=== PATIENT | female | born 1950 | race Caucasian/White ===

== ENCOUNTER 2018-09-28 07:33 | Day surgery (SDC) | payer MEDICARE ==
[~2018-09-28] VITALS: Ht 167.6 cm; Wt 78.5 kg
[~2018-09-28 07:33] MED LIST: BACITRACIN PWD 50,000 UNITS VIAL As Ordered ONE; BUPIVACAINE HCL 0.25% 30 ML VIAL As Ordered ONE; BUPIVACAINE HCL 0.5% 30 ML VIAL As Ordered ONE; LIDOCAINE 1% MDV 20ML VIAL SQ PRN; LIDOCAINE 2% MDV 20 ML VIAL As Ordered ONE; LR 1,000 ML IV ONE; NEOSPORIN GU IRRIG 20 ML VIAL As Ordered ONE; ceFAZolin SOD 2 GM in IV 1 EA IV ONE; dexameTHASONE 4 MG/ML 1ML VIAL (J1100) As Ordered ONE
[2018-09-28] MEDS ORDERED: KETAMINE HCL 200 MG/20 ML VIAL As Ordered ONE ×2 (07:55→10:51)
[2018-09-28] MEDS ORDERED: ONDANSETRON 4MG/2ML VIAL (J2405) As Ordered ONE (07:55)
[2018-09-28] MEDS ORDERED: MIDAZOLAM INJ 2 MG/2 ML VIAL (J2250) As Ordered ONE (07:55)
[2018-09-28] MEDS ORDERED: LIDOCAINE 2% INJ 100 MG/5 ML SDV (FOR ANES.) As Ordered ONE (07:55)
[2018-09-28] MEDS ORDERED: fentaNYL 100 MCG/2 ML INJECTION (J3010) As Ordered ONE (07:55)
[2018-09-28] MEDS ORDERED: PROPOFOL 200 MG/20 ML VIAL As Ordered ONE (07:55)
[2018-09-28 08:30] LABS: BLOOD UREA NITROGEN 17 MG/DL (7-18); CARBON DIOXIDE LEVEL 28 MEQ/L (21-32); CHLORIDE LEVEL 108 MEQ/L (98-107); CREATININE FOR GFR 0.84 MG/DL (0.55-1.30); GLOMERULAR FILTRATION RATE > 60.0 (>45); GLUCOSE, FASTING 106 MG/DL (70-100); POTASSIUM SERUM 3.8 MEQ/L (3.5-5.1); SODIUM LEVEL 140 MEQ/L (136-145)
[2018-09-28] MEDS ORDERED: BACITRACIN PWD 50,000 UNITS VIAL As Ordered ONE (10:38)
[2018-09-28] MEDS ORDERED: GLYCOPYRROLATE INJ 0.2 MG/ML 2 ML VIAL As Ordered ONE (10:51)
[2018-09-28] MEDS ORDERED: dexameTHASONE 4 MG/ML 1ML VIAL (J1100) As Ordered ONE (11:59)
[2018-09-28 13:45] VITALS: BP 162/84
--- NOTE | 2018-09-28 14:01 | REP ---
Status post bunionectomy. Overlying casting/bandaging material obscures the bony detail. There has been previous cheilectomy. Internal fixation plate and screws seen fusing the 1st metatarsophalangeal joint. IMPRESSION: Postoperative changes. Electronically Signed by Juan Jose Abbasi DO 09/28/2018 02:15 P
--- NOTE | 2018-10-01 12:07 | RO ---
DATE OF PROCEDURE: 09/28/2018 PREPROCEDURE DIAGNOSIS: Hallux valgus deformity, right foot. POSTPROCEDURE DIAGNOSIS: Hallux valgus deformity, right foot. PROCEDURE: Fusion first metatarsophalangeal joint with plate and screw fixation, right foot. SURGEON: Dr. [place]. GARAGE DOOR SERVICE TECHNICIAN: None. ANESTHESIA: Local monitored anesthesia care (MAC). IRRIGATION: Dilute bacitracin, neomycin, polymyxin B solution. HEMOSTASIS: Ankle pneumatic tourniquet at 250 mmHg for 78 minutes. HARDWARE UTILIZED: Arthrex medium right-sided MTP plate with locking and nonlocking screws 3 mm x 16, 18, 20, 20, 22. There is a partially threaded 3.0 screw, 3.0 x 32 mm. DESCRIPTION OF PROCEDURE: On 09/28/2018, this 68-year-old white female was taken from her hospital room to the operating room and placed on the operating room table in a supine position. Following the induction of IV sedation and local and regional anesthesia, the right lower extremity was prepped and draped in the usual aseptic manner. Attention was directed to the patient's right foot and the following procedure was performed. FUSION 1ST METATARSOPHALANGEAL JOINT WITH PLATE AND SCREW FIXATION: An incision was placed measuring approximately 7 mm over the 1st metatarsophalangeal joint of the right foot medial to the extensor tendon. The incision was deepened through subcutaneous tissues and all coursing venous tributaries were identified, underscored, clamped, cut, ligated and electrocoagulated as necessary. A linear capsulotomy was performed in the same plane as the original skin incision and the capsule and periosteal structures were dissected free in one continuous layer dorsally, medially and laterally. This lead into view, large loose bodies on the dorsal aspect of the foot, which were debrided away with a rongeur. The joint was opened and approximately 50-55% of the articular cartilage was denuded from the 1st metatarsal 60% from the proximal phalanx, therefore, a fusion of the first metatarsophalangeal joint was elected to be performed. Utilizing a power saw, an osteotomy was performed from the medial eminence of the first metatarsal exiting medial to the sesamoidal grove. Utilizing a rongeur the spurring on the dorsal aspect of the 1st metatarsal was removed as well as the proximal phalanx. Utilizing reamers, the 1st metatarsophalangeal joint was reamed of its articular cartilage. This was completed utilizing a curet to get the remaining cartilage to the subchondral plate utilizing a large K-wire. The first metatarsal and proximal phalanx were drilled to help promote fusion. The wound was flushed with copious amounts of dilute bacitracin, neomycin, polymyxin B solution. The toe was then held with the nail plate parallel to the weightbearing surface and the toe approximately for 45 mm of dorsiflexion from the planar surface with the hallux being parallel to the second toe. A K-wire was driven across the proximal phalanx and metatarsal overlying a medial skin stab incision. The wire was measured and a 3.0 x 32 mm partially threaded screw was placed across the 1st metatarsophalangeal joint. C-arm imaging revealed good overall position. A standard right-sided MTP plate was then contoured to the 1st metatarsal. Appropriate screws were then placed in the holes. One locking screw was utilized. The rest were nonlocking screws 3.0 x 16, 18, 20, 20, and 22. After positioning of the plate and screws, the toe was again evaluated. The hallux maintained its good alignment throughout the position and no change from the previous screw fixation was noted. The fusion site was stable in all three cardinal planes. The wound was flushed with copious amounts of dilute bacitracin, neomycin and polymyxin B solution. Attention was directed towards closure where the capsular was coapted and maintained with #2-0 Monocryl in a simple interrupted type fashion. Subcutaneous tissues were coapted and maintained utilizing #4-0 Monocryl in a simple interrupted type fashion, skin incision coapted and maintained utilizing #5-0 Monocryl in a simple interrupted horizontal mattress type fashion. continuous subcuticular type fashion. Dry sterile dressing applied consisting of Adaptic, 4 x 4s, 4 x 4 splints, Solange and Kerlix. A boot fiberglass cast was then applied to the patient's right lower extremity with the foot at a right angle to the leg. The patient having apparently tolerated the surgical procedure well was taken from the operating room (OR) to the recovery room for further monitoring by the anesthesia department. Postop instruction were given upon discharge.
== END 2018-09-28 13:45 | disposition home or self-care (01) ==
LOC: M SDC 07:33
PROVIDERS: ATTEND Podiatrist
DX: M20.21 Hallux rigidus, right foot (principal); M79.671 Pain in right foot
CPT/HCPCS: 28750; 36415; 73630; 80048; 88300; 97116; C1713; J0690; J1100; J2250; J2405; J3010

== ENCOUNTER → 2020-02-12 | Outpatient (CLI) | payer MEDICARE ==
[2020-02-12 10:43] LABS: BASO # 0.1 10^3/uL (0.0-0.2); EOS # 0.1 10^3/uL (0.0-0.5); EOS % 1.2 % (0.0-3.0); HEMATOCRIT 43.7 % (36.0-47.0); HEMOGLOBIN 14.4 g/dl (12.0-15.5); LYMPH # 1.9 10^3/uL (1.5-5.0); LYMPH % 27.9 % (24.0-44.0); MEAN CORPUSCULAR VOLUME 94.2 fl (80.0-96.0); MONO # 0.5 10^3/uL (0.0-0.8); NEUTROPHILS # 4.2 10^3/uL (1.5-8.5); NEUTROPHILS % 62.6 % (36.0-66.0); PLATELET COUNT, AUTOMATED 259 10^3/uL (150-450); RED BLOOD COUNT 4.64 10^6/uL (4.00-5.40); WHITE BLOOD COUNT 6.7 10^3/uL (4.0-10.0)
[2020-02-12 11:14] LABS: BLOOD UREA NITROGEN 19 MG/DL (7-18); CALCIUM LEVEL 9.2 MG/DL (8.8-10.2); CARBON DIOXIDE LEVEL 27 MEQ/L (21-32); CHLORIDE LEVEL 108 MEQ/L (98-107); CREATININE FOR GFR 0.86 MG/DL (0.55-1.30); GLOMERULAR FILTRATION RATE > 60.0 (>45); GLUCOSE, FASTING 109 MG/DL (70-100); POTASSIUM SERUM 4.9 MEQ/L (3.5-5.1); SODIUM LEVEL 140 MEQ/L (136-145)
--- NOTE | 2020-02-13 22:41 | ECGEPIP ---
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 No significant change compared with 09/24/2018. Electronically Signed on 02-13-2020 22:40:50 EST by Edgar Hay
== END ==
LOC: M LAB 09:17
PROVIDERS: ATTEND Podiatrist
DX: M20.22 Hallux rigidus, left foot (principal); M25.572 Pain in left ankle and joints of left foot

== ENCOUNTER → 2020-02-16 | Outpatient (CLI) | payer MEDICARE | LOC: M LABSMTC 11:19 | PROVIDERS: ATTEND Anesthesiology | DX: Z01.818 Encounter for other preprocedural examination (principal); Z20.828 Contact with and (suspected) exposure to other viral communicable diseases ==

== ENCOUNTER 2020-02-21 07:45 | Day surgery (SDC) | payer MEDICARE ==
[~2020-02-21] VITALS: Ht 168.9 cm; Wt 80.3 kg
[~2020-02-21 07:45] MED LIST changes: -BACITRACIN PWD 50,000 UNITS VIAL As Ordered ONE; -BUPIVACAINE HCL 0.25% 30 ML VIAL As Ordered ONE; -BUPIVACAINE HCL 0.5% 30 ML VIAL As Ordered ONE; -LIDOCAINE 1% MDV 20ML VIAL SQ PRN; -LIDOCAINE 2% MDV 20 ML VIAL As Ordered ONE; -NEOSPORIN GU IRRIG 20 ML VIAL As Ordered ONE; -dexameTHASONE 4 MG/ML 1ML VIAL (J1100) As Ordered ONE
[2020-02-21] MEDS ORDERED: propofoL 500 MG/50 ML VIAL As Ordered ONE (08:10)
[2020-02-21] MEDS ORDERED: dexameTHASONE 4 MG/ML 1ML VIAL (J1100 PER 1MG) As Ordered ONE ×2 (08:10→08:58)
[2020-02-21] MEDS ORDERED: fentaNYL 100 MCG/2 ML INJECTION (J3010) As Ordered ONE (08:10)
[2020-02-21] MEDS ORDERED: MIDAZOLAM INJ 2MG/2ML VIAL (J2250 PER 1MG) As Ordered ONE (08:10)
[2020-02-21] MEDS ORDERED: ONDANSETRON 4MG/2ML VIAL As Ordered ONE (08:10)
[2020-02-21] MEDS ORDERED: LIDOCAINE 2% INJ 100 MG/5 ML SYRINGE As Ordered ONE (08:10)
[2020-02-21] MEDS ORDERED: LIDOCAINE 2% 100MG/5ML SDV (FOR ANES.) As Ordered ONE (08:13)
[2020-02-21] MEDS ORDERED: BUPIVACAINE HCL 0.5% 30 ML VIAL As Ordered ONE (08:50)
[2020-02-21] MEDS ORDERED: LIDOCAINE 2% MDV 20ML VIAL As Ordered ONE (08:50)
[2020-02-21] MEDS ORDERED: BACITRACIN PWD 50,000 UNITS VIAL As Ordered ONE (08:58)
[2020-02-21] MEDS ORDERED: SUGAMMADEX SODIUM 500 MG/5 ML VIAL (BRIDION) As Ordered ONE (09:52)
[2020-02-21 12:10] VITALS: BP 161/72
--- NOTE | 2020-02-21 12:27 | REP ---
INDICATION: POST OP CHEILECTOMY WITH FUSION LEFT FOOT COMPARISON: None. TECHNIQUE: Three views. FINDINGS: There is surgical fusion of the great toe MTP with a stabilization plate and cannulated screw. The hardware and skeletal structures are in satisfactory positions and alignment. There is a fiberglass cast. Calcaneal plantar spur is incidentally noted. IMPRESSION: Great toe MTP surgical fusion as described <Electronically signed by Bart Sands > 02/21/20 2005
--- NOTE | 2020-02-21 22:39 | RO ---
OPERATIVE NOTE DATE OF OPERATION: 02/21/2020 PREOPERATIVE DIAGNOSIS: Hallux limitus deformity, left foot. POSTOPERATIVE DIAGNOSIS: Hallux limitus deformity, left foot. SURGEON: ANGELITO Gomez ASSISTANT: None. ANESTHESIA: Local MAC. IRRIGATION: Dilute bacitracin, neomycin, polymyxin B solution. HEMOSTASIS: Ankle pneumatic tourniquet at 200 mmHg for 62 minutes, left ankle. HARDWARE UTILIZED: Arthrex MTP small plate, left-sided and locking and nonlocking screws, nonlocking screws 3.0 x 38, 3.0 x 18 and a 3.0 x 20 locking screws, 3.0 x 20, 3.0 x 20, 3.0 x 16 and a 3.0 x 16 screw. DESCRIPTION OF OPERATION: On 02/21/2020, this 70-year-old white female was taken from her hospital room to the operating room and placed on the operating table in supine position. Following the induction of IV sedation and local and regional anesthesia, the left lower extremity was prepped and draped in the usual aseptic manner. Attention was directed to the patient's left foot and a 7 cm incision was placed over the first metatarsophalangeal joint medial to the extensor tendon. The incision was deepened through the subcutaneous tissues and all crossing venous tributaries were identified, scored, clamped, cut and ligated with electrocoagulation as necessary A linear capsulotomy was then performed in the same plane as the original skin incision. The capsule and periosteal structures were then dissected free in one continuous layer, dorsally, medially and laterally, thus creating a capsular periosteal type envelope. This brought into view the cartilage of the first metatarsophalangeal joint. The central area approximately encompassing 40% of the joint was completely denuded. Therefore, any resection of the joint would remove 70-80% of the articular cartilage on the first metatarsophalangeal joint, making a cheilectomy not feasible. Therefore utilizing a cup and cone reamer, the remaining cartilage was reamed off the first metatarsal and proximal phalanx. Utilizing a Kennedy sagittal saw, spurring was then removed dorsally off the first metatarsal and proximal phalanx and the medial eminence of the first metatarsal. Utilizing a rongeur and curette, any remaining cartilage and spurring were removed. Utilizing a 2 mm drill bit, the first metatarsal and phalanx were fenestrated. The wound was flushed with copious amounts of dilute bacitracin, neomycin, polymyxin B solution. The toe was placed in position to allow adequate dorsiflexion of the hallux and this was temporarily fixated with a K-wire. Position was then verified and a 3.0 x 38 mm screw was placed across the first metatarsophalangeal joint. Adequate position was noted. The first metatarsophalangeal joint implant, left-sided Arthrex, size small was then contoured to the first metatarsophalangeal joint and fixated utilizing the appropriate locking and nonlocking screws. Locking screws were 3.0 x 20, 20, 16 and 16 and the nonlocking screws were size 18 and 20. Intraoperative C-arm imagery revealed excellent position of fixation and the hallux was approximately 5 mm dorsal off the weightbearing surface with adequate position of the hallux. The wound was flushed with copious amounts of dilute bacitracin, neomycin, polymyxin B solution and attention directed towards closure with the capsular structures coapted and maintained utilizing 3-0 Monocryl in a simple interrupted type fashion. The subcutaneous tissues were coapted and maintained utilizing 4-0 Monocryl in a simple interrupted type fashion. The skin incision was coapted and maintained utilizing 4-0 Prolene in a simple interrupted and horizontal mattress type fashion. Attention was directed toward bandaging where a bandage was applied consisting of Adaptic, 4x4s, 4x4 splints Kerlix and a well-molded Fiberglass cast was applied to the patient's foot and lower leg. The patient having apparently tolerated the surgical procedure well and was taken from the OR to the recovery room for further monitoring by the anesthesia department. Postoperative instructions were given upon discharge.
== END 2020-02-21 12:40 | disposition home or self-care (01) ==
LOC: M SDC 07:45
PROVIDERS: ATTEND Podiatrist
DX: M20.22 Hallux rigidus, left foot (principal); M79.672 Pain in left foot; K21.9 Gastro-esophageal reflux disease without esophagitis
CPT/HCPCS: 28750; 73630; 76000; 88300; C1713; J0690; J1100; J2250; J2405; J3010

== ENCOUNTER → 2021-09-09 | Outpatient (CLI) | payer MEDICARE ==
[2021-09-09 13:00] LABS: ALBUMIN 3.9 GM/DL (3.2-5.2); ALT/SGPT 26 U/L (12-78); BASO # 0.1 10^3/uL (0.0-0.2); BILIRUBIN,TOTAL 0.8 MG/DL (0.2-1.0); BLOOD UREA NITROGEN 19 MG/DL (7-18); CALCIUM LEVEL 9.1 MG/DL (8.8-10.2); CARBON DIOXIDE LEVEL 27 MEQ/L (21-32); CHLORIDE LEVEL 108 MEQ/L (98-107); CHOLESTEROL LEVEL 188 MG/DL (<200); CHOLESTEROL RISK RATIO 3.298 (<5); CREATININE FOR GFR 0.82 MG/DL (0.55-1.30); EOS # 0.1 10^3/uL (0.0-0.5); EOS % 1.8 % (0.0-3.0); GLOMERULAR FILTRATION RATE > 60.0 (>45); GLUCOSE, FASTING 109 MG/DL (70-100); HDL CHOLESTEROL 57 MG/DL (>40); HEMATOCRIT 43.1 % (36.0-47.0); HEMOGLOBIN 14.2 g/dl (12.0-15.5); LDL CHOLESTEROL 108 MG/DL (<100); LYMPH # 1.7 10^3/uL (1.5-5.0); LYMPH % 34.1 % (24.0-44.0); MEAN CORPUSCULAR HEMOGLOBIN 30.6 pg (27.0-33.0); MEAN CORPUSCULAR HGB CONC 32.9 g/dl (32.0-36.5); MEAN CORPUSCULAR VOLUME 92.9 fl (80.0-96.0); MONO # 0.4 10^3/uL (0.0-0.8); MONO % 8.1 % (2.0-8.0); NEUTROPHILS # 2.7 10^3/uL (1.5-8.5); NEUTROPHILS % 54.8 % (36.0-66.0); NON-HDL-C 131 MG/DL; PLATELET COUNT, AUTOMATED 259 10^3/uL (150-450); POTASSIUM SERUM 4.5 MEQ/L (3.5-5.1); RED BLOOD COUNT 4.64 10^6/uL (4.00-5.40); SODIUM LEVEL 140 MEQ/L (136-145); TOTAL PROTEIN 7.1 GM/DL (6.4-8.2); TRIGLYCERIDES LEVEL 113 MG/DL (<150); WHITE BLOOD COUNT 4.9 10^3/uL (4.0-10.0)
== END ==
LOC: M WUC 09:10
PROVIDERS: ATTEND Nurse Practitioner Family
DX: R03.0 Elevated blood-pressure reading, without diagnosis of hypertension (principal); Z79.899 Other long term (current) drug therapy

== ENCOUNTER → 2021-10-04 | Outpatient (CLI) | payer MEDICARE ==
[2021-10-04 16:48] LABS: HEMOGLOBIN A1c 5.6 %
== END ==
LOC: M WUC 13:30
PROVIDERS: ATTEND Nurse Practitioner Family
DX: R73.01 Impaired fasting glucose (principal)

== ENCOUNTER → 2022-09-13 | Outpatient (CLI) | payer MEDICARE ==
[2022-09-13 10:26] LABS: HEMOGLOBIN A1c 5.4 % (4.0-6.0)
[2022-09-13 10:29] LABS: ALBUMIN 3.8 G/DL (3.2-5.2); ALKALINE PHOSPHATASE 88 U/L (46-116); ALT/SGPT 26 U/L (7.0-40); AST/SGOT 12 U/L (<34); BILIRUBIN,TOTAL 0.8 MG/DL (0.3-1.2); BLOOD UREA NITROGEN 20 MG/DL (9-23); CALCIUM LEVEL 10.1 MG/DL (8.3-10.6); CARBON DIOXIDE LEVEL 28 MMOL/L (20-31); CHLORIDE LEVEL 105 MMOL/L (98-107); CHOLESTEROL LEVEL 193 MG/DL (<200); CHOLESTEROL RISK RATIO 3.51 (<5); CREATININE FOR GFR 0.81 MG/DL (0.55-1.30); GLOMERULAR FILTRATION RATE > 60.0 (>39); GLUCOSE, FASTING 98 MG/DL (74-106); HDL CHOLESTEROL 54.9 MG/DL (>40); LDL CHOLESTEROL 119.9 MG/DL (<100); NON-HDL-C 138.1 MG/DL; POTASSIUM SERUM 4.8 MMOL/L (3.5-5.1); SODIUM LEVEL 138 MMOL/L (136-145); TOTAL PROTEIN 6.8 G/DL (5.7-8.2); TRIGLYCERIDES LEVEL 91 MG/DL (<150)
[2022-09-13 10:34] LABS: TOTAL 25(OH) VITAMIN D 27.6 NG/ML (20.0-100.0)
== END ==
LOC: M WUC 08:14
PROVIDERS: ATTEND Registered Nurse
DX: Z00.00 Encounter for general adult medical examination without abnormal findings (principal)

== ENCOUNTER → 2022-10-18 | Outpatient (CLI) | payer MEDICARE | LOC: M WHC 13:38 | PROVIDERS: ATTEND Nurse Practitioner Family | DX: Z12.31 Encounter for screening mammogram for malignant neoplasm of breast (principal); Z13.820 Encounter for screening for osteoporosis; M85.851 Other specified disorders of bone density and structure, right thigh; M85.852 Other specified disorders of bone density and structure, left thigh; N63.21 Unspecified lump in the left breast, upper outer quadrant ==

== ENCOUNTER → 2022-10-25 | Outpatient (CLI) | payer MEDICARE | LOC: M WHC 09:12 | PROVIDERS: ATTEND Nurse Practitioner Family | DX: R92.8 Other abnormal and inconclusive findings on diagnostic imaging of breast (principal) | CPT/HCPCS: 76642; 77065; G0279 ==

== ENCOUNTER → 2023-08-09 | Outpatient (CLI) | payer MEDICARE | LOC: M WHC 09:13 | PROVIDERS: ATTEND Registered Nurse | DX: N63.21 Unspecified lump in the left breast, upper outer quadrant (principal) | CPT/HCPCS: 76642; 77066; G0279 ==

== ENCOUNTER → 2023-09-18 | Outpatient (CLI) | payer MEDICARE ==
[2023-09-18 18:29] LABS: BASO # 0.1 10^3/uL (0.0-0.2); BASO % 0.9 % (0.0-1.0); EOS # 1.2 10^3/uL (0.0-0.5); EOS % 14.2 % (0.0-3.0); HEMOGLOBIN 13.4 g/dl (12.0-15.5); LYMPH % 22.9 % (24.0-44.0); MEAN CORPUSCULAR HEMOGLOBIN 31.5 pg (27.0-33.0); MEAN CORPUSCULAR HGB CONC 32.7 g/dl (32.0-36.5); MEAN CORPUSCULAR VOLUME 96.5 fl (80.0-96.0); MONO # 0.7 10^3/uL (0.0-0.8); NEUTROPHILS # 4.6 10^3/uL (1.5-8.5); NEUTROPHILS % 53.7 % (36.0-66.0); PLATELET COUNT, AUTOMATED 270 10^3/uL (150-450); RED BLOOD COUNT 4.25 10^6/uL (4.00-5.40); WHITE BLOOD COUNT 8.6 10^3/uL (4.0-10.0)
[2023-09-18 18:34] LABS: ALBUMIN 3.8 G/DL (3.2-5.2); ALKALINE PHOSPHATASE 80 U/L (46-116); ALT/SGPT 31 U/L (7.0-40); AST/SGOT 13 U/L (<34); BILIRUBIN,TOTAL 0.5 MG/DL (0.3-1.2); BLOOD UREA NITROGEN 13 MG/DL (9-23); CALCIUM LEVEL 9.7 MG/DL (8.3-10.6); CARBON DIOXIDE LEVEL 28 MMOL/L (20-31); CHLORIDE LEVEL 106 MMOL/L (98-107); CREATININE FOR GFR 0.77 MG/DL (0.55-1.30); GLOMERULAR FILTRATION RATE > 60.0 (>39); GLUCOSE, FASTING 80 MG/DL (74-106); POTASSIUM SERUM 4.3 MMOL/L (3.5-5.1); SODIUM LEVEL 140 MMOL/L (136-145); TOTAL 25(OH) VITAMIN D 27.7 NG/ML (20.0-100.0); TOTAL PROTEIN 6.6 G/DL (5.7-8.2)
[2023-09-18 18:35] LABS: THYROID STIMULATING HORMONE 5.337 uIU/ML (0.55-4.78)
[2023-09-18 18:36] LABS: FREE T4 1.19 NG/DL (0.89-1.76)
== END ==
LOC: M WUC 11:07
PROVIDERS: ATTEND Registered Nurse
DX: R53.83 Other fatigue (principal); M81.0 Age-related osteoporosis without current pathological fracture; J20.9 Acute bronchitis, unspecified

== ENCOUNTER → 2023-10-16 | Outpatient (CLI) | payer MEDICARE ==
[2023-10-16 13:51] LABS: THYROID STIMULATING HORMONE 4.73 uIU/ML (0.55-4.78)
[2023-10-16 13:53] LABS: FREE T4 1.02 NG/DL (0.89-1.76)
== END ==
LOC: M WUC 10:23
PROVIDERS: ATTEND Registered Nurse
DX: R94.6 Abnormal results of thyroid function studies (principal)